=== PATIENT | female | born 1995 | race African-American/Black ===

== ENCOUNTER 2021-02-20 23:43 | Emergency (ER) | payer BC, OTHER ==
[2021-02-20] MEDS ORDERED: Acetaminophen 500 MG TAB ONE (23:59)
[2021-02-21] MEDS ORDERED: Fentanyl 100 MCG/2 ML VIAL ONE (01:26)
== END 2021-02-21 02:48 | disposition home or self-care (01) ==
LOC: ERS 23:43
DX: O99.613 Diseases of the digestive system complicating pregnancy, third trimester (principal); K56.41 Fecal impaction; O99.513 Diseases of the respiratory system complicating pregnancy, third trimester; J45.909 Unspecified asthma, uncomplicated; Z3A.28 28 weeks gestation of pregnancy
CPT/HCPCS: 96374; J3010

== ENCOUNTER 2022-04-10 13:27 | Emergency (ER) | payer OTHER ==
[~2022-04-10 13:27] MED LIST: Iopamidol-370 76% 500 ML 1 ML ONE
[2022-04-10 17:22] LABS: Hemoglobin 13.4 g/dL (12.0-16.0); Mean Corpuscular HGB CONC 31.6 g/dL (32.0-36.0); Mean Corpuscular Hemoglobin 24.4 pg (27.0-31.0); Mean Corpuscular Volume 77.4 fL (78.0-98.0); Mean Platelet Volume 9.7 fL (7.4-10.4); Platelet Count 211 thou/uL (130-400); RBC Distribution Width 13.5 % (11.5-14.5); Red Blood Cell (RBC) Count 5.49 mill/uL (4.20-5.40); White Blood Cell (WBC) Count 3.2 thou/uL (4.8-10.8)
[2022-04-10] MEDS ORDERED: Ketorolac Tromethamine 30 MG/ML VIAL ONE (17:31)
[2022-04-10] MEDS ORDERED: Ondansetron PF 4 MG/2 ML Vial ONE (17:31)
[2022-04-10 17:33] LABS: INR-International Normal Ratio 1.1; PTT 38.1 sec (22.9-36.1)
[2022-04-10 17:45] LABS: ALT (SGPT) 21 U/L (8-55); AST (SGOT) 22 U/L (5-34); Albumin 4.6 g/dL (3.5-5.0); Alkaline Phosphatase 59 U/L (40-110); Anion Gap 14 mmol/L (10-20); BUN (Urea Nitrogen) 9 mg/dL (7.0-18.7); Bilirubin, Total 0.4 mg/dL (0.2-1.2); Calc. Creatinine Clearance 0 mL/min (70-130); Calcium 9.4 mg/dL (7.8-10.44); Carbon Dioxide 23 mmol/L (22-29); Chloride 105 mmol/L (98-107); Estimated GFR 70; Globulin 3.4 g/dL (2.4-3.5); Glucose 81 mg/dL (70-105); Potassium 3.3 mmol/L (3.5-5.1); Sodium 139 mmol/L (136-145)
[2022-04-10 17:50] LABS: Band 5 % (5-11); Eosinophils 2 % (0-10); Lymphocytes 15 % (21-51); MDiff Complete? YES; Monocytes 20 % (0-10); Neutrophil 58 % (42-75); Platelet Morphology Comment Appears Adequate
[2022-04-10 18:23] LABS: SARS-CoV-2 NAA Rapid Test DETECTED (NotDetected)
[2022-04-10 18:34] LABS: BHCG - Serum Negative (NEGATIVE); Pregs Control Bar Appear? YES (CONTROL BAR)
[2022-04-10 18:35] LABS: Pregs Control Background? CLEAR/WHITE (CLR/WHITE)
== END 2022-04-10 21:20 | disposition home or self-care (01) ==
LOC: EEVIPCON 13:27 → ERS 13:27
DX: U07.1 COVID-19 (principal); T83.32XA Displacement of intrauterine contraceptive device, initial encounter; M48.07 Spinal stenosis, lumbosacral region; I49.3 Ventricular premature depolarization; J45.909 Unspecified asthma, uncomplicated
CPT/HCPCS: 36415; 71045; 74177; 80053; 83605; 83880; 84484; 84703; 85025; 85610; 85730; 87040; 87804; 93005; 96361; 96374; 96375; J1885; J2405; Q9967; U0002